=== PATIENT | male | born 1945 | race Caucasian/White ===

== ENCOUNTER 2022-04-17 00:47 | Inpatient (IN) | payer OTHER ==
[~2022-04-17] VITALS: Ht 177.8 cm; Wt 81.9 kg
[~2022-04-17 00:47] MED LIST: Aspirin EC325 MG PO
[2022-04-17 01:15] LABS: BASOPHILS ABSOLUTE AUTO 0.04 K/mm3 (0.00-0.23); BASOPHILS PERCENT AUTO 1 % (0-2); EOSINOPHILS ABSOLUTE AUTO 0.18 K/mm3 (0.00-0.68); EOSINOPHILS PERCENT AUTO 2 % (0-6); Hematocrit 42.8 % (37.0-53.0); Hemoglobin 14.7 g/dL (13.5-17.5); IMMATURE GRAN ABSOLUTE AUTO 0.03 K/mm3 (0.00-0.10); IMMATURE GRAN PERCENT AUTO 0 % (0-1); LYMPHOCYTES ABSOLUTE AUTO 2.17 K/mm3 (0.84-5.20); LYMPHOCYTES PERCENT AUTO 28 % (21-46); MONOCYTES ABSOLUTE AUTO 0.72 K/mm3 (0.16-1.47); MONOCYTES PERCENT AUTO 9 % (4-13); Mean Corpuscular HGB 32.2 pg (26.0-34.0); Mean Corpuscular HGB Conc 34.3 g/dL (31.5-36.5); Mean Corpuscular Volume 94 fL (80-100); Mean Platelet Volume 9.6 fL (9.1-12.4); NEUTROPHILS ABSOLUTE AUTO 4.73 K/mm3 (1.96-9.15); NEUTROPHILS PERCENT AUTO 60 % (41-73); Platelet Count 204 K/mm3 (150-400); RDW Coefficient Variation 13.2 % (11.7-14.2); RDW Standard Deviation 45.2 fL (35.1-46.3); Red Blood Cell Count 4.57 M/mm3 (4.30-5.90); White Blood Cell Count 7.87 K/mm3 (4.00-11.30)
[2022-04-17 01:36] LABS: Alanine Aminotransfer (ALT/SGP 14 U/L (12-78); Albumin, Blood 3.1 g/dL (3.4-5.0); Albumin/Globulin Ratio 0.8 (0.8-1.8); Alk Phos 121 U/L (50-136); Anion Gap 8 mmol/L (6-16); Aspartate Aminotrans (AST/SGOT 19 U/L (12-37); Bilirubin, Total 0.5 mg/dL (0.1-1.0); Blood Urea Nitrogen 17 mg/dL (8-24); Bun/Creatinine Ratio 15.7 (12.0-20.0); CO2, Blood 23 mmol/L (21-32); Calcium, Blood 8.6 mg/dL (8.5-10.1); Chloride, Blood 112 mmol/L (98-108); Creatinine, Blood 1.08 mg/dL (0.60-1.20); Ethanol (Alcohol), Blood, Med <3 mg/dL; Glomerular Filtration Rate 70 (60-); Glucose, Blood 115 mg/dL (70-99); Potassium, Blood 3.9 mmol/L (3.5-5.5); Sodium, Blood 143 mmol/L (136-145); Total Protein, Blood 7.1 g/dL (6.4-8.2)
[2022-04-17 01:51] LABS: Source, Urine Foley catheter
[2022-04-17 01:54] LABS: PCO2 Arterial 35.5 mmHg (35-45); PO2 Arterial 137 mmHg (80-100); pH Blood Arterial 7.42 (7.35-7.45)
[2022-04-17 01:58] LABS: Appearance, Urine Clear (Clear); Bilirubin, Urine Neg (Neg); Blood, Urine 3+ (Neg); Glucose Qualitative, Urine Neg (Neg); Ketones, Urine Neg (Neg); Leukocyte Esterase, Urine Neg (Neg); Nitrite, Urine Neg (Neg); Protein, Urine 1+ (Neg); Specific Gravity, Urine 1.015 (1.003-1.022); Urobilinogen, Urine NORM (Normal)
[2022-04-17 02:01] LABS: Color, Urine Pale Yellow (P-Yellow)
[2022-04-17 02:03] LABS: Influenza A, PCR NEGATIVE (NEGATIVE); Influenza B, PCR NEGATIVE (NEGATIVE); Resp Syncytial Virus, PCR NEGATIVE (NEGATIVE); SARS-Cov-2 (COVID-19) PCR, MMC NEGATIVE (NEGATIVE)
[2022-04-17 02:10] LABS: Bacteria Many /hpf; Hyaline Casts 0-2 /lpf (0-2); Squamous Epithelial Cells Not Seen /hpf (Few); White Blood Cells, Urine 0-2 /hpf (0-5)
[2022-04-17 02:15] LABS: U Amphetamine Screen Not Detected; U Barbituate Screen Not Detected; U Benzodiazapine Screen Not Detected; U Buprenorphine Screen Not Detected; U Cannabinoids Screen Not Detected; U Cocaine Screen Not Detected; U Methadone Screen Not Detected; U Methamphetamine Screen Not Detected; U Opiates Screen Not Detected; U Oxycodone Screen Not Detected; U Phencyclidine Screen Not Detected; U Propoxyphene Screen Not Detected
[2022-04-17 02:21] LABS: International Normalized Ratio 1.05
--- NOTE | 2022-04-17 06:50 | NUR ---
ASSUMTION OF CARE/ END OF SHIFT RECIEVED PT FROM ED AFTER GETTING REPORT FROM ARPITA BRYANT. PT ARRIVED SEDATED AND INTUBATED. ETT 8.0 26 GUMS ON AC/VC. SEE NERUO NOTE FOR NEURO ASSESMENT WHICH IS ABNORMAL. PT IS HYPERTENISIVE.HR 80'S TEMP 96.5 PHONE REJI TO UPDATE ON HIS ARRIVAL.
--- NOTE | 2022-04-17 07:00 | NUR ---
ASSUME CARE: I have assumed care of this patient.
[2022-04-17] MEDS ORDERED: THERA-D2000 UNIT PO (10:43)
[2022-04-17] MEDS ORDERED: Prozac20 MG PO (10:43)
[2022-04-17] MEDS ORDERED: ZESTRIL40 M1 PO (11:57)
[2022-04-17] MEDS ORDERED: AMLO5 PO (11:58)
[2022-04-17] MEDS ORDERED: Robaxin750 MG PO (12:03)
[2022-04-17] MEDS ORDERED: PREG75 PO (18:44)
--- NOTE | 2022-04-17 18:51 | NUR ---
SHIFT SUMMARY: CTA head and neck obtained today. NEURO: pt does not open eyes independantly. however with sedation paused he will follow fingers through visual gonzales and move RLE to command. Propofol at 5. CARDIAC: sinus rhythm, stable BP RESPIRATORY: tolerating pressure support of 5 well at 30% fiO2 GI/: no BM today. Total of 1350 out today. Pivot 1.5 started at 25 mls/hr PSYCH/SOCIAL: family at bedside and supportive throughout the day.
--- NOTE | 2022-04-17 19:44 | NUR ---
Assumed care. Report received from gisela BRYANT. Pt in bed, sedated and ventilated via ETT. RT at bedside, Pt vent settings changed from spontaneous to AC/VC 12/500/5/30%. OG tube in place, TF at 25 ml/hr. Pt has PG in CHINO, L/wrist IV access. Propofol titrated to 15 mcg/kg/min for ventilator compliance. NS tko. Temp reddy in place, draining to gravity. Pt vital signs stable att, will continue to monitor.
[2022-04-18 04:59] LABS: Hematocrit 40.7 % (37.0-53.0); Hemoglobin 13.7 g/dL (13.5-17.5); Mean Corpuscular HGB 31.6 pg (26.0-34.0); Mean Corpuscular HGB Conc 33.7 g/dL (31.5-36.5); Mean Corpuscular Volume 94 fL (80-100); Mean Platelet Volume 9.6 fL (9.1-12.4); Platelet Count 194 K/mm3 (150-400); RDW Coefficient Variation 13.5 % (11.7-14.2); RDW Standard Deviation 46.6 fL (35.1-46.3); Red Blood Cell Count 4.33 M/mm3 (4.30-5.90); White Blood Cell Count 9.06 K/mm3 (4.00-11.30)
[2022-04-18 05:11] LABS: Albumin, Blood 2.6 g/dL (3.4-5.0); Anion Gap 7 mmol/L (6-16); Blood Urea Nitrogen 18 mg/dL (8-24); Bun/Creatinine Ratio 16.4 (12.0-20.0); CO2, Blood 24 mmol/L (21-32); Chloride, Blood 113 mmol/L (98-108); Glomerular Filtration Rate 69 (60-); Glucose, Blood 119 mg/dL (70-99); Magnesium, Blood 2.2 mg/dL (1.6-2.4); Phosphorus, Blood 2.7 mg/dL (2.5-4.9); Potassium, Blood 3.4 mmol/L (3.5-5.5); Sodium, Blood 144 mmol/L (136-145)
--- NOTE | 2022-04-18 06:53 | NUR ---
Shift summary. Pt continues on ventilator and sedation. No changes to vent during shift. Propofol titrated up to 25 mcg/kg/min for ventilator compliance. Order obtained from Dr. Sams for PRN fentanyl, pt given one dose, see emar for details. VS stable throughout shift, see assessment for further details.
--- NOTE | 2022-04-18 08:00 | NUR ---
Received report from Timi BRYANT. patient is intubated. He has 8.0 ET and is 26 and teeth with vent settings of 12/500/30/5 and sats 98%. patient has 18ga PowerGlide to CHINO and dressing iontact and site WNL and is infusing Propofol at 25 mcg/kg/min and NS TKO. He also has 20ga IV in LH and is flushed and Sl'd. He has 16Fr temp reddy draining to gravity yellow urine and temp of 96.1. He has OG inplace and is infusing Pivot 1.5 at 25 ml/hr with 30 ml water flush q4.
--- NOTE | 2022-04-18 10:00 | NUR ---
Dr Gotti by and assessed and stopped TF and after PO meds through OG stopped propofol and disconnected TF. He has been slowly awakening with at bedside. He slowly opens eye to verbal commands but is not following with extremity movement, will reassess in a little bit.
--- NOTE | 2022-04-18 11:49 | NUR ---
Patient remains off Propofol and is on spon. mode PS . He awakens to verbal stimuli with some eye opening, but is still not moveing extremities to command. VSS. Dr Gotti has been again and spoke with and wants to wait longer to see if he awakens better.
--- NOTE | 2022-04-18 14:38 | NUR ---
Patient has been very daphoretic and placed cool wash cloth to back of neck and placed fan at low speed. His temp has been 98.9-98.3. He continues to open eyes when call his name but does not squeeze right hand on request or encouargement. Repositioned. Propofol remains off and NS TKO. Called Dr Gotti and will be extubating patient.
--- NOTE | 2022-04-18 15:02 | NUR ---
Dr Gotti by and extubated at 1445 to 2 L O2 via NC and sats 93-97%.
--- NOTE | 2022-04-18 16:57 | NUR ---
went home and will be back tomorrow. Placed 90 OPA and patient has had apnic periods up to 17 seconds and has RR currently 11-18 and sast >88%. Dr Gotti has been in room and will be watching closer.
--- NOTE | 2022-04-18 19:30 | NUR ---
Assumed care. Report received from gisela BRYANT. Pt extubated today, currently resting in bed, on 02 via NC at 4 L/min. Pt does not respond to verbal stimuli, small movements of feet note, no other purposeful movement. Snoring respirations noted. Rt at bedside for NT suctioning. PG in CHINO DC'd att. IV place in R/forearm. Pt has IV in L/wrist. Villela catheter in place. VS stable att, will continue to monitor.
--- NOTE | 2022-04-18 22:52 | NUR ---
Intubation. After conversation with Dr. Gotti about patient's respiratory status, decision was made to re-intubate. Dr. Camarena called to bedside with RT. 15 mg Etomidate given, 100 mg Succinylcholine given, pt intubated at 2224. ETT 8.0, 26 cm at the gums. Vent settings: AC/VC 16/500/5/35%. OG tube placed after intubation, both ETT and OG placement verified by Xray. Family notified of change in patient status.
[2022-04-18 23:28] LABS: PCO2 Arterial 32.9 mmHg (35-45); PO2 Arterial 85.8 mmHg (80-100); pH Blood Arterial 7.43 (7.35-7.45)
[2022-04-19 03:58] LABS: BASOPHILS ABSOLUTE AUTO 0.03 K/mm3 (0.00-0.23); BASOPHILS PERCENT AUTO 0 % (0-2); EOSINOPHILS ABSOLUTE AUTO 0.02 K/mm3 (0.00-0.68); EOSINOPHILS PERCENT AUTO 0 % (0-6); Hematocrit 40.4 % (37.0-53.0); Hemoglobin 13.6 g/dL (13.5-17.5); IMMATURE GRAN ABSOLUTE AUTO 0.07 K/mm3 (0.00-0.10); IMMATURE GRAN PERCENT AUTO 1 % (0-1); LYMPHOCYTES ABSOLUTE AUTO 1.37 K/mm3 (0.84-5.20); LYMPHOCYTES PERCENT AUTO 12 % (21-46); MONOCYTES ABSOLUTE AUTO 1.31 K/mm3 (0.16-1.47); MONOCYTES PERCENT AUTO 11 % (4-13); Mean Corpuscular HGB 31.7 pg (26.0-34.0); Mean Corpuscular HGB Conc 33.7 g/dL (31.5-36.5); Mean Corpuscular Volume 94 fL (80-100); Mean Platelet Volume 10.1 fL (9.1-12.4); NEUTROPHILS ABSOLUTE AUTO 8.78 K/mm3 (1.96-9.15); NEUTROPHILS PERCENT AUTO 76 % (41-73); Platelet Count 201 K/mm3 (150-400); RDW Coefficient Variation 13.5 % (11.7-14.2); RDW Standard Deviation 46.6 fL (35.1-46.3); Red Blood Cell Count 4.29 M/mm3 (4.30-5.90); White Blood Cell Count 11.58 K/mm3 (4.00-11.30)
[2022-04-19 04:15] LABS: Bun/Creatinine Ratio 29.3 (12.0-20.0); Calcium, Blood 8.2 mg/dL (8.5-10.1); Creatinine, Blood 0.89 mg/dL (0.60-1.20); Magnesium, Blood 2.1 mg/dL (1.6-2.4); Phosphorus, Blood 2.7 mg/dL (2.5-4.9); Potassium, Blood 3.6 mmol/L (3.5-5.5)
--- NOTE | 2022-04-19 06:25 | NUR ---
Shift summary. Pt currently in bed, sedated and ventilated via ETT. Pt re-intubated this shift, see note for details. Propofol infusing at 30 mcg/kg/min, LR 150 ml/hr, NS tko. 150 mls dark/tea colored urine out this shift. VS stable post-intubation, see shift assessments for further details. Will continue to monitor and report off to dayshift RN.
--- NOTE | 2022-04-19 07:05 | NUR ---
Received report from Timi BRYANT. Patient has been reintubated with 8.0 ET and is 26 cm at gums with vent settings of AC/VC 16/500/35/5 and sats 98%. Pupils are 4 and sluggish to respond and right pupil slightly smaller than left. He opens eyes to loud verbal stimuli and does not track or follow commands. He has 20ga RFA and is infusing Propofol at 30 mcg/kg/min and NS TKO , 20ga LH iv infusing LR at 150ml/hr. He has 16Fr temp reddy draining to gravity dark tea colored urine. When touching feet bilateral large toe comes back and very stiff. He has new OG placed and is clamped until nutrition orders continued from yesterday.
--- NOTE | 2022-04-19 08:13 | NUR ---
Received report from Callie BRYANT. Patient is intubated and sedated with 8.0 ET and is [facility] His vent setting are AC/VC 16/500/50/12 and sats 93%. He arouse slightly to verbal stimuli. He has RIJ, dressing intact and site and is infusing NS TKO. Also has 18ga PowerGlide CHINO and is infusing Propofol at 45 mcg/kg/min. He has OG in place and is infusing VHP at 50 ml/hr and 30 ml water flushed q4 and very low residuals.He has dressings to bilateral LE's and were assessed an d changed by wound care yesterday late afternoon. He has 16Fr reddy draining to gravity clear yellow urine. He has junior;ateral soft wrist restraints in place for line,tube and patient safety.
--- NOTE | 2022-04-19 10:25 | NUR ---
Patients significant other at bedside. Reduced Propofol has been reduced to 20 mcg/kg/min. Starting VHP tube feed at 25 ml/hr and 30 ml water flush q4. VSS. Minimal gross movement to left side and nothing on right. Opens eyes but does not track, he mouths tube when aroused.
--- NOTE | 2022-04-19 11:23 | NUR ---
Supportive visit this AM. Spoke with Primary RN Devon and discussed case. Pt scheduled for CT today. Family aware of prognosis and is considering comfort care pending results of CT. Pt resting in bed with eyes closed and is intubated. Pt's SO at bedside. Offered supportive visit and active listening. Listened as SO Mihaela discusses Pt's life including being in the and working for [employer]. She discusses events leading up to hospital admission and plan for Pt's daughter to come in this afternoon. Continued supportive visit. Palliative Care will F/U with family later today.
--- NOTE | 2022-04-19 12:23 | NUR ---
Patient to CT for head CT and tolerated well. LR has been Dc'd. Propofol remains low at 20 mcg/kg/min and is adeqaute sedation. he moves head and left side grossly and mouths tube. VSS. Family at bedside awaiting CT results.
--- NOTE | 2022-04-19 13:52 | NUR ---
Patient has been more diaphoretic than earlier and placed cool cloth and turn fan on and seems to be slightly better, temp 98.7. No neuro changes, no vent setting changes and no current gtt changes. Patient breathing with vent well and has not been alarming. VHP infusing per order in OG.
--- NOTE | 2022-04-19 15:30 | NUR ---
ASSUMED PT CARE. REPORT FROM MANNY AVINA. PT REMAINS INTUBATED AND SEDATED. PUPILS 5MM AND BRISK. DISCONJUGATE GAZE. LEFT ARM CONTRACTURE NOTED. NO NOTED SPONTANEOUS MOVEMENT OF EXTREMITIES. NO GAG. MINIMAL COUGH WITH SUCTIONING. ECG SHOWS SR WITH RATE 80'S. SBP 140'S. LUNGS DIMINISHED IN THE BASES. SATS>90% ON FIO2 35%. ETT SUCTION PRODUCTIVE OF MODERATE AMOUNT OF THICK, WHITE SPUTUM. PT TOLERATING OGTF WELL. PEÑALOZA TO BSD WITH SCANT AMOUNT OF DARK, TEA COLORED URINE.
--- NOTE | 2022-04-19 21:18 | NUR ---
ASSUMED CARE PT INTUBATED AND SEDATED. PROPOFOL GTT 20MCG/KG/MIN. NS TKO. VENT SETTINGS AC/VC 16/500/5/30% RR 16. NO RESTRAINTS IN PLACE. NO MOVEMENT NOTED IN BUE. PEÑALOZA PATENT AND DRAINING TO GRAVITY. OG W/ VITAL HP 30ML/HR Q4 30ML WATER FLUSH.
[2022-04-20 04:06] LABS: Hematocrit 37.1 % (37.0-53.0); Hemoglobin 12.5 g/dL (13.5-17.5); Mean Corpuscular HGB 31.5 pg (26.0-34.0); Mean Corpuscular HGB Conc 33.7 g/dL (31.5-36.5); Mean Corpuscular Volume 94 fL (80-100); Mean Platelet Volume 10.2 fL (9.1-12.4); Platelet Count 171 K/mm3 (150-400); RDW Coefficient Variation 13.4 % (11.7-14.2); RDW Standard Deviation 45.9 fL (35.1-46.3); Red Blood Cell Count 3.97 M/mm3 (4.30-5.90); White Blood Cell Count 7.61 K/mm3 (4.00-11.30)
[2022-04-20 04:28] LABS: Bun/Creatinine Ratio 25.5 (12.0-20.0); Calcium, Blood 8.1 mg/dL (8.5-10.1); Creatinine, Blood 1.06 mg/dL (0.60-1.20); Magnesium, Blood 2.1 mg/dL (1.6-2.4); Phosphorus, Blood 1.9 mg/dL (2.5-4.9)
--- NOTE | 2022-04-20 06:26 | NUR ---
SHIFT SUMMARY PT REMAINS INTUBATED AND SEDATED W/ PROPOFOL GTT 20MCG/KG/MIN. VENT SETTINGS AC/VC 16/500/5/35% RR 16. NO ACUTE EVENTS OVERNIGHT. VSS.
--- NOTE | 2022-04-20 08:30 | NUR ---
AM NOTE: ASSUMED CARE OF PT AT 0700. THE PT IS CURRENTLY SEDATED AND INTUBATED WITH PROPOFOL RUNNING AT 20 MCG/KG/MIN AND VENT SETTINGS AT AC/VC 16/500/5/30%. THE PT IS RESPONSIVE TO PAIN STIMULI AND IS LIFTING HIS HEAD TO SIMULI (PAIN/COUGH). THE PT HAS UNEQUAL PUPILS, BUT ARE BOTH REACTIVE TO LIGHT. THE PT'S IS SHOWING NYSTAGMUS AND HIS GAVE IS ALWAYS SHIFTING TO THE LEFT UPPER REGION. THE PT HAS CLEAR LUNG SOUNDS IN THE UPPER LOBES WITH DIMINSHED LUNG SOUNDS IN THE LOWER LOBES. O2 LEVELS ARE MAINTAINING 94< WITH RR 16. THE PT HAS HIS BIG TOE ON HIS LEFT FOOT CONTINUOUSLY EXTENDED. THE PROVIDER NOTIFIED. THE IS AT BEDSIDE THIS MORNING AT 1000. THE PT'S STATES THAT THE PT'S DAUGHTER, ASHLEY, PLANS ON BEING BY TO SEE THE PT ANYTIME BEFORE 1500. THE WAS UPDATED ON THE PT'S STATUS AND ALL QUESTIONS WERE ANSWERED AT THIS TIME. WILL CONTINUE TO MONITOR THROUGHOUT THE SHIFT.
--- NOTE | 2022-04-20 12:22 | NUR ---
Spiritual Care - "Things we care to Know*" Visited Significant other and facilitated a life review. Preparing a "Things We Care to Know" stockroom attendant for the Pt. *"Things We Care to KNow" is an ICU Cloth Folder Machine program designed to personalize the Pt./Staff relationship particularly for the Pt. who can't speak for themselves.
--- NOTE | 2022-04-20 14:12 | NUR ---
SHIFT UPDATE: ALDO PALLIATIVE CARE NURSE STOPPED BY TO SPEAK WITH PT'S DAUGHTERASHLEY, TO FURTHER DISCUSS THE OPTION OF COMFORT CARE AND MORE SPECIFICS ABOUT THE PT'S CONDITION. THE PT'S DAUGHTER AND LIFE PARTNER HAVE DECIDED TO PUT THE PT ON COMFORT CARE AT THIS TIME. COMFORT CARE ORDERS HAVE BEEN PUT IN. LITO RT HAS BEEN NOTIFIED OF PLAN TO EXTUBATE SOON HE IS AVAILABLE. NURSE AUDITOR AND PROVIDER HAVE BEEN NOTIFIED. FRANCOISE PALLIATIVE CARE NURSE IS HERE FOR ADDITIONAL SUPPORT FOR THE FAMILY AT THIS TIME.
--- NOTE | 2022-04-20 14:24 | NUR ---
Met with pt's S/O Yris and pt's daughter Louisa at bedside. Although Louisa is the primary decision maker as she is the closest relative, she and Yris are making the decison together. Bedside RN Sadi turned off propofol to allow pt to "wake up". It was during this interaction that Louisa states she agrees with Yris that it's time to place pt on comfort care. Pt is unable to track movement, eyes fixed up and to the left with occasional involuntary nystagmus. Comfort care initiated, and Palliative to remain available.
--- NOTE | 2022-04-20 14:57 | NUR ---
Spiritual Care Visit. Pt. is Comfort Care and is being extubated. SO and daughter Louisa are present, as is Palliative Care and ICU nurses. Established rapport with Daughter and SO. Prayed a blessing over the Pt. The family is choosing [facility] in [place] for their home. Both Daughter and SO verbalized gratitude for the spiritual care visit.
--- NOTE | 2022-04-20 15:01 | NUR ---
PT EXTUBATED... PT EXTUBATED THIS AFTERNOON AT 1440. PT MEDICATED PER EMAR TO ENSURE COMFORT POST EXTUBATION. COMFORT CART OUTSIDE OF ROOM FOR PT'S FAMILY NEEDED. PALLIATIVE CARE RN, FRANCOISE, AND CHAPLANARLEN, AT BEDSIDE DURING THE EXTUBATION TO OFFER SUPPORT FOR THE FAMILY NEEDED.
--- NOTE | 2022-04-20 15:07 | NUR ---
Family has elected comfort care. Offered emotional support and gentle instruction of possible S/S Pt may experience. Continued supportive visit as Pt is extubated by Primary RN and RT. Clerical Supervisor Austin in to offer spiritual care to Pt and family. Pt appears comfortable and ended visit to allow family time with Pt. Spoke with Primary RNs Sadi and Bakari. Palliative Care will remain available.
--- NOTE | 2022-04-20 18:54 | NUR ---
SHIFT SUMMARY: PT CONTINUES TO BE MEDICATED AROUND THE CLOCK PER EMAR TO PROVIDE CONTINUOUS COMFORT CARE. THE PT'S DAUGHTER AND PARTER HAVE REMAINED AT BEDSIDE THIS AFTERNOON. THE PT'S O2 LEVELS HAVE BEEN SLOWLY TRENDING DOWN SINCE EXTUBATION; CURRENTL O2 LEVELS ARE IN THE 40-50'S. WILL CONTINUE TO MONITOR UNTIL ONCOMING LIVESTOCK TRADER RN.
--- NOTE | 2022-04-20 19:00 | NUR ---
ASSUMED CARE OF PATIENT AT THIS TIME. PATIENT RESTING IN BED, UNRESPONSIVE. SNORING GENTLY. FAMILY AT BEDSIDE. NASAL TRUMPET INSERTED FOR PATIENT COMFORT.
--- NOTE | 2022-04-21 00:15 | NUR ---
REPORT GIVEN TO MANNY BROWNE. PATIENT MOVING TO MEDICAL FLOOR. S/O AWARE OF TRANSFER, ALL BELONGINGS SENT WITH PATIENT.
--- NOTE | 2022-04-21 00:35 | NUR ---
0030: REPORT RECEIVED FROM NABIL Pathak PT WILL TRANSFER TO ROOM 342. CC
--- NOTE | 2022-04-21 01:25 | NUR ---
0100: PT TRANSFERRED FROM ICU TO ROOM 342. SIGNIFICANT OTHER ON BEDSIDE. PT UNRESPONSIVE. NASAL TRUMPHET PRESENT. 2 IV ON R ARM. COMFORT CARE. WILL CONTINUE TO MONITOR AND MEDICATE FOR PAIN AND COMFORT PER MD ORDER. SEE EMR.
--- NOTE | 2022-04-21 04:43 | NUR ---
SHIFT SUMMARY COMFORT CARE. NO ACUTE CHANGES SINCE PT WAS TRANSFERRED FROM ICU. PT UNRESPONSIVE. SIGNIFICANT OTHER AT BEDSIDE. IT APPEARS THAT THE PT MOANS AT TIMES. MEDICATED FOR PAIN. 1MG DILAUDID GIVEN VIA IV. REPOSITIONED Q2. ORAL CARE. CALL LIGHT WITHIN REACH FOR FAMILY. WILL PROVIDE REPORT TO ONCOMING NURSE.
--- NOTE | 2022-04-21 12:49 | NUR ---
Spiritual Care Visit - Pt./Nurse request Pt. is comfort care and SO is present. SO is a little unsettled about the decision for comfort care, but in the end displays evidence of agreement and peace. Facilitate a lengthy Life review, with a calming presence. SO displayed evidence of being heard and affirmed. Prayed with SO and Pt. SO verbalized gratitude for the spiritual care visit.
--- NOTE | 2022-04-21 13:40 | NUR ---
PATIENTS FAMILY CAME TO ASK IF THE PATIENT COULD POSSIBLY HAVE SOMETHING FOR COMFORT. REPORTED INCREASED NOISES, SOFT GROAN, AND SOME RESTLESSNESS. THIS CHAIN MACHINE OPERATOR WENT TO ASSESS, AFTERWORD HE WAS GIVEN 10 MG LUIS. FAMILY IS PRESENT AT BEDSIDE.
--- NOTE | 2022-04-21 18:38 | NUR ---
PATIENT IS ON COMFORT CARE. FAMILY WAS HERE THE MAJORITY OF THE DAY. HE NEEDED ROXINOL(10MG) X 1 THAT REALLY REDUSED ANY RESTLESSNESS AND AIR HUNGER. PATIENT IS BEULAH, BLOOD VESSELS IN CHEEKS BECOMING OBVIOUS, SWELLING IN ARMS AND HAS BEEN NON RESPONSIVE THIS SHIFT. HE WILL GROAN SOFTLY AT TIMES WHEN REPOSITIONED, OPEN HIS EYES, WICH ARE FIXED IN AN UPPER STARE WHEN OPEN. APPEARS TO BE COMFORTABLE. PEÑALOZA IN PLACE, DEPENDS FOR BM IN PLACE. BM X 1 TODAY.
--- NOTE | 2022-04-22 05:05 | NUR ---
SHIFT SUMMARY ADMITTED FOR CVA. DNR CODE. CONTACT PRECAUTIONS FOR MRSA. ON COMFORT CARE. Q2 TURNS. PEÑALOZA IN PLACE. SCOPALAMINE PATCH IN PLACE. NOSE TRUMPET REMOVED BY RT THIS SHIFT. PT IS UNRESPONSIVE, BUT OPENS HIS EYES WE ARE TURNING HIM. BLE EDEMA NOTED. PT IS NOT APPEARING UNCOMFORTABLE AT THIS TIME. PRN COMFORT MEDICATIONS ARE AVAILABLE IF HE EXIBITS SIGNS OF DISCOMFORT. NO BM THIS SHIFT.
--- NOTE | 2022-04-22 09:34 | NUR ---
Comfort Care Visit Pt resting in bed with his eyes closed. Mild secretions, moderate labored breathing and moaning noted. Pt's SO Mihaela at bedside. Offered active listening and answered questions. Primary RN Mari in to offer comfort medications. SO expresses appreciation and reports no other concerns at this time. Palliative Care will remain available.
--- NOTE | 2022-04-22 17:13 | NUR ---
[facility] RN REPORTED PT PASSED. MD AND NRS CHEF CONCIERGE NOTIFIED. FAMILY CHOOSING [employer] [facility] WHEN READY TO LEAVE. PT UNRESPONSIVE PRIOR TO START OF SHIFT. MEDICATED PER EMAR FOR PAIN, AIR HUNGER, AND ANXIETY NEEDED. ORAL SUCTION DONE THRU OUT SHIFT, NEEDED AND PER FAMILY REQUEST. PT'S DAUGHTER AND S/O BOTH IN RM MOST OF THE DAY; ESPECIALLY S/O UNTIL PT PASSED. FAMILY MAKING ARRANGEMENTS AT THIS TIME.
== END 2022-04-22 16:10 | DRG 208 ==
LOC: ER 00:47 → ICUW 04:18 → MEDS 04-21 00:42
PROVIDERS: Family Medicine; Internal Medicine Critical Care Medicine; Student in an Organized Health Care Education/Training Program; ADMIT Internal Medicine
PROC: 5A1945Z Respiratory Ventilation, 24-96 Consecutive Hours (ICD-10-PCS; principal; 2022-04-17)
PROC: 0BH17EZ Insertion of Endotracheal Airway into Trachea, Via Natural or Artificial Opening (ICD-10-PCS; 2022-04-17)
PROC: 0BH18EZ Insertion of Endotracheal Airway into Trachea, Via Natural or Artificial Opening Endoscopic (ICD-10-PCS; 2022-04-19)
DX: J69.0 Pneumonitis due to inhalation of food and vomit (principal); I63.89 Other cerebral infarction; J96.90 Respiratory failure, unspecified, unspecified whether with hypoxia or hypercapnia; N17.9 Acute kidney failure, unspecified; G93.49 Other encephalopathy; G81.91 Hemiplegia, unspecified affecting right dominant side; Z51.5 Encounter for palliative care; Z66 Do not resuscitate; Z20.822 Contact with and (suspected) exposure to COVID-19; Z78.1 Physical restraint status; I25.10 Atherosclerotic heart disease of native coronary artery without angina pectoris; I10 Essential (primary) hypertension; F32.A Depression, unspecified; G89.29 Other chronic pain; F17.210 Nicotine dependence, cigarettes, uncomplicated; M54.50 Low back pain, unspecified; B96.20 Unspecified Escherichia coli [E. coli] as the cause of diseases classified elsewhere; B95.1 Streptococcus, group B, as the cause of diseases classified elsewhere; B37.9 Candidiasis, unspecified; B95.62 Methicillin resistant Staphylococcus aureus infection as the cause of diseases classified elsewhere; Z88.0 Allergy status to penicillin; Z98.890 Other specified postprocedural states; I25.2 Old myocardial infarction; Z88.5 Allergy status to narcotic agent; Z79.82 Long term (current) use of aspirin
CPT/HCPCS: 0241U; 31500; 36415; 36600; 51702; 70450; 70496; 70498; 71045; 80048; 80053; 80069; 81001; 82803; 82947; 83605; 83735; 84100; 84146; 85025; 85027; 85610; 87070; 87077; 87086; 87147; 87186; 87205; 93005; 93010; 94002; 94003; 94660; 94762; 96361; 96365; 96375; 99291-25; A9270; C1751; C9113; G0480; J0330; J0696; J1170; J1630; J1650; J2060; J2250; J2270; J2704; J3010; J3480; J7030; J7040; J7060; J7120; Q9967